=== PATIENT | female | born 1955 | race Caucasian/White ===

== ENCOUNTER 2017-08-11 12:54 | Outpatient (CLI) ==
--- NOTE | 2017-08-13 11:49 | MAMMO ---
EXAM: Bilateral digital screening mammogram (2-D and 3-D) Comparison: Bilateral mammogram 01/22/2016 History: Screening Findings: MLO and CC views of bilateral breasts demonstrate scattered fibroglandular breast parenchy ma. CAD was reviewed by the radiologist. Tomosynthesis was performed. There are no dominant masses, no suspicious microcalcifications and no architectural distortions Impression: Stable negative mammogram. Recommend followup routine screening mammography in 1 year. BIRADS 1
== END 2017-08-11 12:55 | disposition home or self-care (01) ==
LOC: RAD 12:54
PROVIDERS: ATTEND Family Medicine
DX: Z12.31 Encounter for screening mammogram for malignant neoplasm of breast (principal)
CPT/HCPCS: 77067

== ENCOUNTER 2017-09-28 07:56 | Outpatient (CLI) ==
--- NOTE | 2017-09-28 08:47 | DEXA ---
EXAM: Bone density HISTORY: Osteoporosis with history of right hip replacement interval treatment and arthritis with hi story of menopause COMPARISON: Left hip bone density evaluation 12/24/2010 TECHNIQUE: Digital images of the thoracolumbar spine and left hip were provided and calculation of b one density was obtained. FINDINGS: Digital images demonstrate no compression deformities of the thoracolumbar spine. DEXA scan of the lumbar spine is of good quality. The total BMD equals 0.751 grams per square centimeter. T-score is -3.7 and Z-score of - 2.7. DEXA of the left hip was performed and of good quality. Total bone marrow density of 0.790 grams per square centimeter. (Prior 0.887) T score is - 1.7 and Z-score of - 0.9. IMPRESSION: Bone density of the hip and lumbar spine demonstrate osteoporosis of the lumbar spine an d osteopenia of the left hip by WHO criteria. Bone density of the left hip has decreased. FRAX calculation demonstrates 10-year major osteoporotic fracture risk of 11.4% and hip fracture risk of 2.1%. T score greater than -1 is normal T score -1 to -2.5 is osteopenia T score less than - 2.5 is osteoporosis
== END 2017-09-28 07:57 | disposition home or self-care (01) ==
LOC: RAD 07:56
PROVIDERS: ATTEND Family Medicine
DX: M81.0 Age-related osteoporosis without current pathological fracture (principal)